=== PATIENT | female | born 1960 | race Caucasian/White ===

== ENCOUNTER 2016-04-30 11:48 | Emergency (ER) | payer OTHER ==
[2016-04-30 12:06] VITALS: BP 119/90; PULSE 86; TEMP 99.8; BMI 25.7
--- NOTE | 2016-04-30 12:40 | PDOC ---
[id number] R ANKLE INJURY Time Seen by Provider: 04/30/16 12:21 - History of Present Illness Initial Comments: Complaint: Pain right ankle History of present illness: Twisted right ankle yesterday. Persistent pain and swelling. Ambulatory but significant pain with weightbearing. No prior fracture Examination reveals ecchymosis, swelling, and tenderness over the anterolateral ankle ligaments. No point tenderness of the malleoli or fifth metatarsal. Neurovascular intact. Gait adequate, though there is pain with weightbearing X-ray: Soft tissue swelling, no fracture Plan: Rest, ice, [place], elevate, anti-inflammatory medication. If no improvement, see orthopedist for further evaluation and treatment 5-7 days. Patient adequately ambulatory upon discharge to follow-up as directed. Past History - Past Medical History Allergies/Adverse Reactions: Allergies Allergy/AdvReac Type Severity Reaction Status Date / Time No Known Allergies Allergy Unverified 01/05/16 06:56 Home Medications: Ambulatory Orders Cholecalciferol (Vitamin D3) [Vitamin D3] 2,000 unit PO DAILY tablet 01/10/16 Cyanocobalamin (Vitamin B-12) [Vitamin B12] 1,500 mcg PO AM tablet 01/10/16 Diclofenac Sodium [Voltaren -] 50 mg PO TID #20 tablet. 04/30/16 - Psycho/Social/Smoking Cessation Hx Anxiety: No Suicidal Ideation: No Smoking History: Current every day smoker Have you smoked in the past 12 months: Yes Number of Cigarettes Smoked Daily: 10 Information on smoking cessation initiated: Yes 'Breaking Loose' booklet given: 04/30/16 Hx Alcohol Use: No Drug/Substance Use Hx: No Substance Use Type: None *Physical Exam - Vital Signs Last Vital Signs Temp Pulse Resp BP Pulse Ox 99.8 F H 86 16 119/90 95 04/30/16 12:02 04/30/16 12:02 04/30/16 12:02 04/30/16 12:02 04/30/16 12:02 *DC/Admit/Observation/Transfer Diagnosis at time of Disposition: Ankle sprain Qualifiers: Encounter type: initial encounter Involved ligament of ankle: tibiofibular ligament Laterality: right Qualified Code(s): S93.431A - Sprain of tibiofibular ligament of right ankle, initial encounter - Discharge Dispostion Disposition: HOME Condition at time of disposition: Stable Admit: No - Prescriptions Prescriptions: Diclofenac Sodium [Voltaren -] 50 mg PO TID #20 tablet.dr - Referrals Referrals: Tony Gutierrez MD [Staff Physician] - 1 week - Patient Instructions Printed Discharge Instructions: DI for Ankle Sprain, How to Apply an [place] Wrap
[2016-04-30] MEDS ORDERED: IBUPROFEN 400 MG TABLET (FP) PO ONE ×2 (12:50→12:53)
== END 2016-04-30 14:05 | disposition home or self-care (01) ==
LOC: FER 11:48
DX: S93.431A Sprain of tibiofibular ligament of right ankle, initial encounter (principal); X58.XXXA Exposure to other specified factors, initial encounter; Y93.9 Activity, unspecified; Y92.9 Unspecified place or not applicable; F17.210 Nicotine dependence, cigarettes, uncomplicated
CPT/HCPCS: 73610-TC-RT; 73630-TC-RT; 99281-25

== ENCOUNTER 2018-08-07 06:45 | Emergency (ER) | payer OTHER ==
[2018-08-07 06:56] VITALS: BP 144/74; PULSE 83; TEMP 97.9; BMI 22.6
[2018-08-07] MEDS ORDERED: IBUPROFEN 600 MG TABLET (FP) PO ONE ×2 (07:09→07:10)
[2018-08-07] MEDS ORDERED: ACETAMINOPHEN 325 MG TABLET (FP) PO ONE (07:09)
--- NOTE | 2018-08-07 07:09 | PDOC ---
History of Present Illness - General Chief Complaint: Injury Stated Complaint: TRIPPED OVER RUG YESTERDAY, PAIN TO LEFT KNEE Time Seen by Provider: 08/07/18 07:09 History Source: Patient Exam Limitations: No Limitations - History of Present Illness Initial Comments: 08/07/18 07:21 HPI 57 YOF presenting with left knee pain and swelling, unable to walk, s/p trip and fall on rug at home while wearing new sneakers. No prodromal sx. No numbness tingling or weakness in affected extremity. No LOC or head injury. No meds taken [facility] HOME HEALTH> Allergies: None Past Medical History: [place] Social history: +tobacco use. No alcohol or drug use. Surgical history: umbilical hernia Review of Systems MUSCULOSKELETAL: +joint pain and swelling. No muscle pain/arthralgias. SKIN: +mild bruising and swelling. no discharge, no rash. No wounds. Hematologic: no easy bruising/bleeding. NEUROLOGIC: No weakness, numbness or tingling. Allergic/Immunologic: no allergies All other systems reviewed and negative, or as documented in HPI. physical exam General: +anxious, screaming in pain. Vascular: 2+ DP pulses symmetric and equal. MSK: Proximal and distal strength 5/5, iron caster strength 5/5 - equal and symmetric. Plantar flexion and dorsiflexion 5/5, wiggles toes. Sensation grossly intact to light touch to S1-L4 distribution.. soft compartment. 2+ DP pulses bilaterally. ROM limited at the left knee 2/2 pain and swelling. +left prox tibial tenderness with overlying swelling and mild ecchymosis. No crepitus. No distal ankle or prox hip tenderness. Neuro: alert, no focal neuro deficits. Skin: color normal color, warm and well perfused. Cap refill <2 sec Past History - Past Medical History Allergies/Adverse Reactions: Allergies Allergy/AdvReac Type Severity Reaction Status Date / Time No Known Allergies Allergy Verified 08/07/18 06:46 Home Medications: Ambulatory Orders Cholecalciferol (Vitamin D3) [Vitamin D3] 2,000 unit PO DAILY tablet 01/10/16 Cyanocobalamin (Vitamin B-12) [Vitamin B12] 1,500 mcg PO AM tablet 01/10/16 COPD: No Psychiatric Problems: Yes (ANXIETY) - Suicide/Smoking/Psychosocial Hx Smoking History: Current every day smoker Have you smoked in the past 12 months: Yes Number of Cigarettes Smoked Daily: 10 Information on smoking cessation initiated: Yes 'Breaking Loose' booklet given: 04/30/16 Hx Alcohol Use: No Drug/Substance Use Hx: No Substance Use Type: None *Physical Exam - Vital Signs Last Vital Signs Temp Pulse Resp BP Pulse Ox 97.9 F 83 20 144/74 99 08/07/18 06:52 08/07/18 06:52 08/07/18 06:52 08/07/18 06:52 08/07/18 06:52 Medical Decision Making - Medical Decision Making 08/07/18 07:21 hpi as documented VS reviewed, wnl. In pain. DDx. arthritis, prox tibia fx, fibular fx, patella fx, knee effusion, knee sprain. clinically considered but doubt septic arthritis or gout/infection, as no skin findings and chronicity of sx w/o systemic findings. no palp knee effusion on exam to warrant tap. more fracture vs sprain. given analgesia ibuprofen/tylenol, reassess. using the ice and elevating on pillow comfortable otherwise, able to turn on her side and rest in bed. more mobile with her knee and lower extrem. Xray left knee, normal joint space alignment, no widening, no acute fx or dislocation. patella intact. prox tibia and plateau without evidence of cortical irregularlities or deformity or fracture Discussed results with patient. knee immobilizer, Rest ice and elevation. Pain control with OTC meds including motrin/tylenol as needed every 6 hours; no narcotics needed. Ortho followup provided. Crutches to assist with ambulation, WBAT. Please return to ED for increased pain, weakness, numbness/tingling, fever, or redness. 08/07/18 07:51 08/07/18 07:52 *DC/Admit/Observation/Transfer Diagnosis at time of Disposition: Sprain of left knee/leg - Discharge Dispostion Disposition: HOME Condition at time of disposition: Stable Decision to Admit order: No - Referrals Referrals: Km Lopez MD [Primary Care Provider] - Liborio Urena MD [Staff Physician] - Richie Hinton MD [Staff Physician] - - Patient Instructions Printed Discharge Instructions: DI for Knee Sprain, How to Use an Elastic Bandage-Knee Sprain Additional Instructions: you most likely have musculoskeletal strain and knee sprain. avoid heavy lifting or strenuous activity, or heavy exercise or walking extensively. you can walk with crutches if needed the knee immobilizer or sunil bandage will help with the pain, do not use the immobilizer device for more than 3 days to minimize further trauma and locked knee, this will delay the healing May take ibuprofen or tylenol every 6 hours as needed for mild to moderate pain , available over the counter. continue with range of motion exercises. RICE rest ice elevate the affected extremity Rest, Ice (20 minutes at a time, 3 times a day), Compression (SUNIL wrap or splint ), Elevation (above the heart). Follow up with your primary care physician in 1 week if symptoms persist, or with orthopedics if needed. Follow up with primary doctor/retail product demo specialist services provided as well. orthopedics referrals given. This should heal over the next 3-5 days, up to one week. FALL PREVENTION AT HOME WHAT YOU NEED TO KNOW There are many different factors that can increase your risk of falls. Falls can happen any time, but the majority of them occur in the home. Fall prevention includes ways to make your home and other areas safer. It also includes ways you can move more carefully to prevent a fall. Health conditions that cause changes in your blood pressure, vision, or muscle strength and coordination may increase your risk for falls. Medicines, including anesthesia, may increase your risk for falls if they make you dizzy, weak, or sleepy. FALL PREVENTION TIPS Stand or sit up slowly. This may help you keep your balance and prevent falls. Do not walk and talk at the same time. Concentrate on the task of walking and continue the conversation after you've reached a safe place. Wear shoes that fit well and have soles that iron caster. Wear shoes both inside and outside. Use slippers with good iron caster. Avoid shoes with high heels. Use assistive devices as directed. Your healthcare provider may suggest that you use a cane or walker to help you keep you balance. Be sure you have adequate lighting throughout your house. Keep paths clear. Remove books, shoes and other objects from walkways and stairs. Keep cords for telephones and lamps out of the way so you dont need to walk over them. Remove small rugs or secure them with double-sided tape. This will prevent you from tripping. Use a nightlight when getting out of bed at night. Stay active to maintain overall strength and endurance. Know your limitations. If there is a task you can not complete with ease, do not risk a fall by trying to complete it. Call 911 or have someone else call if: You have fallen and are unconscious You have fallen and cannot move part of your body Contact your healthcare provider if: You have fallen and have pain or a headache You have questions or concerns about your condition or care. - Post Discharge Activity
[2018-08-07] MEDS ORDERED: ACETAMINOPHEN 325 MG TABLET (FP) ONE (07:10)
== END 2018-08-07 08:31 | disposition home or self-care (01) ==
LOC: FER 06:45
DX: S83.92XA Sprain of unspecified site of left knee, initial encounter (principal); W18.09XA Striking against other object with subsequent fall, initial encounter; Y93.89 Activity, other specified; Y92.009 Unspecified place in unspecified non-institutional (private) residence as the place of occurrence of the external cause; F17.210 Nicotine dependence, cigarettes, uncomplicated; F32.9 Major depressive disorder, single episode, unspecified
CPT/HCPCS: 73562-TC-LT-FY; 99281-25

== ENCOUNTER 2022-02-02 04:08 | Day surgery (SDC) | payer OTHER ==
[2022-02-01 11:06] VITALS: BMI 26.4
[2022-02-02] MEDS ORDERED: HEPARIN NA (PORCINE) 5,000 UNITS/ML 1ML VIAL ONE ×2 (07:30→10:31)
[2022-02-02] MEDS ORDERED: LIDOCAINE HCL 1%, 10 MG/ML (20ML VIAL) ONE (07:30)
[2022-02-02] MEDS ORDERED: LIDOCAINE HCL 1%, 10 MG/ML (20ML VIAL) NR ONE ×3 (08:24→10:25)
[2022-02-02] MEDS ORDERED: HEPARIN NA (PORCINE) 5,000 UNITS/ML 1ML VIAL SQ ONE ×2 (08:25→10:27)
[2022-02-02] MEDS ORDERED: MIDAZOLAM HCL 2 MG/2 ML SINGLE DOSE VIAL ONE (10:10)
[2022-02-02] MEDS ORDERED: ceFAZolin SODIUM 1 GM VIAL IVPB ONE (10:15)
[2022-02-02] MEDS ORDERED: ceFAZolin SODIUM 1 GM VIAL ONE (10:15)
[2022-02-02] MEDS ORDERED: PROPOFOL 20 ML ONE (10:43)
[2022-02-02] MEDS ORDERED: CLOPIDOGREL BISULFATE 75 MG TABLET (FP) PO ONE ×2 (11:18→11:29)
[2022-02-02] MEDS ORDERED: CLOPIDOGREL BISULFATE 75 MG TABLET (FP) ONE (11:26)
[2022-02-02] MEDS ORDERED: ONDANSETRON 4 MG/2 ML VIAL IVPUSH PRN (12:11)
[2022-02-02] MEDS ORDERED: oxyCODONE HCL 5 MG TABLET PO PRN (12:11)
[2022-02-02 13:53] VITALS: BP 145/73; PULSE 67; RESP 16; TEMP 98.2
== END 2022-02-02 13:20 | disposition home or self-care (01) ==
LOC: JASU-SURG 04:08
PROVIDERS: ATTEND Surgery Vascular Surgery
PROC: 047J3DZ Dilation of Left External Iliac Artery with Intraluminal Device, Percutaneous Approach (ICD-10-PCS; principal; 2022-02-02 10:30)
DX: I70.212 Atherosclerosis of native arteries of extremities with intermittent claudication, left leg (principal)
CPT/HCPCS: 37221; C1877; 76000-TC-FY; 94760; J1644

== ENCOUNTER 2022-02-09 04:19 | Inpatient (IN) | payer OTHER ==
[2022-02-08 15:02] VITALS: BMI 25.7
[2022-02-09] MEDS ORDERED: LIDOCAINE HCL 1%, 10 MG/ML (20ML VIAL) ONE (07:34)
[2022-02-09] MEDS ORDERED: HEPARIN NA (PORCINE) 5,000 UNITS/ML 1ML VIAL ONE ×2 (07:34→13:52)
[2022-02-09] MEDS ORDERED: ceFAZolin SODIUM 1 GM VIAL ONE (12:25)
[2022-02-09] MEDS ORDERED: MIDAZOLAM HCL 2 MG/2 ML SINGLE DOSE VIAL ONE ×2 (12:26→12:40)
[2022-02-09] MEDS ORDERED: ceFAZolin SODIUM 1 GM VIAL IVPB ONE ×2 (12:31)
[2022-02-09] MEDS ORDERED: LIDOCAINE HCL 1%, 10 MG/ML (20ML VIAL) INF ONE ×2 (12:34)
[2022-02-09] MEDS ORDERED: PROPOFOL 40 ML ONE (12:43)
[2022-02-09] MEDS ORDERED: HEPARIN NA (PORCINE) 5,000 UNITS/ML 1ML VIAL SQ ONE (13:04)
[2022-02-09] MEDS ORDERED: PROPOFOL 20 ML ONE ×2 (13:42→14:05)
[2022-02-09] MEDS ORDERED: HEPARIN INFUSION - 25,000 UNITS/500 ML INFUS.BAG IVPB ONE (13:54)
[2022-02-09] MEDS ORDERED: ALTEPLASE (CATHFLO) 15 MG in SODIUM CHLORIDE 135 ML CVP ONE ×2 (14:00→16:00)
[2022-02-09] MEDS ORDERED: ALTEPLASE (CATHFLO) 15 MG in SODIUM CHLORIDE 135 ML NR ONE ×3 (14:10→16:00)
[2022-02-09] MEDS ORDERED: ONDANSETRON 4 MG/2 ML VIAL IVPUSH PRN ×2 (14:37→15:17)
[2022-02-09] MEDS ORDERED: PROMETHAZINE HCL 25 MG/1 ML VIAL IVPUSH PRN ×2 (14:37→15:17)
[2022-02-09] MEDS ORDERED: oxyCODONE HCL 5 MG TABLET PO PRN (14:37)
[2022-02-09] MEDS ORDERED: HEPARIN INFUSION - 25,000 UNITS/500 ML INFUS.BAG IVPB SCH ×2 (15:45→15:56)
[2022-02-09] MEDS ORDERED: SODIUM CHLORIDE 1,000 ML IV SCH (15:45)
[2022-02-09] MEDS ORDERED: HYDROmorphone HCl 2 MG/ML VIAL ONE (16:30)
[2022-02-09] MEDS: oxyCODONE HCL 5 MG TABLET PO PRN ×2 (18:34→23:39)
[2022-02-09] MEDS ORDERED: HYDROmorphone HCl 2 MG/ML VIAL IVPUSH ONE (19:05)
[2022-02-09] MEDS: MUPIROCIN 2% TOPICAL OINTMENT FOR DECOLONIZATION NS SCH (21:20)
[2022-02-09] MEDS: CHLORHEXIDINE GLUCONATE 4% CLEANSER FOR DECOLONIZATION TP SCH (21:20)
[2022-02-09] MEDS: NICOTINE 14 MG/24 HOURS TOPICAL PATCH TD SCH (21:20)
[2022-02-09 21:53] LABS: HEMATOCRIT 35.4 % (32.4-45.2); HEMOGLOBIN 11.9 GM/dL (10.7-15.3); MCH 33.7 pg (25.7-33.7); MCHC 33.5 g/dl (32.0-36.0); MEAN CELL VOLUME 100.6 fl (80-96); MEAN PLT VOLUME 8.7 fl (7.5-11.1); PLATELET COUNT 209 10^3/uL (134-434); RBC 3.52 M/mm3 (3.60-5.2); RDW 12.6 % (11.6-15.6)
[2022-02-09 22:03] LABS: INR 0.91 (0.83-1.09); PROTHROMBIN TIME (PATIENT) 10.5 SEC (9.7-13.0)
[2022-02-10 04:03] LABS: BLOOD UREA NITROGEN 14.8 mg/dL (7-18); CALCIUM 7.7 mg/dL (8.5-10.1); INR 0.91 (0.83-1.09); PROTHROMBIN TIME (PATIENT) 10.5 SEC (9.7-13.0)
[2022-02-10 04:05] LABS: ACTIVATED PTT 30.6 SECONDS (25.2-36.5)
[2022-02-10 04:08] LABS: CREATININE 0.6 mg/dL (0.55-1.3)
[2022-02-10 05:01] LABS: HEMATOCRIT 34.2 % (32.4-45.2); HEMOGLOBIN 11.5 GM/dL (10.7-15.3); MCH 34.1 pg (25.7-33.7); MCHC 33.7 g/dl (32.0-36.0); MEAN CELL VOLUME 101.2 fl (80-96); MEAN PLT VOLUME 8.6 fl (7.5-11.1); PLATELET COUNT 189 10^3/uL (134-434); RBC 3.38 M/mm3 (3.60-5.2); RDW 12.2 % (11.6-15.6); WHITE BLOOD COUNT 8.2 K/mm3 (4.0-10.0)
[2022-02-10] MEDS: oxyCODONE HCL 5 MG TABLET PO PRN ×4 (05:27→21:50)
[2022-02-10] MEDS ORDERED: LIDOCAINE HCL 1%, 10 MG/ML (20ML VIAL) ONE (07:07)
[2022-02-10] MEDS ORDERED: HEPARIN NA (PORCINE) 5,000 UNITS/ML 1ML VIAL ONE (07:07)
[2022-02-10] MEDS ORDERED: HEPARIN NA (PORCINE) 5,000 UNITS/ML 1ML VIAL SQ ONE ×2 (07:13→07:49)
[2022-02-10] MEDS ORDERED: LIDOCAINE HCL 1%, 10 MG/ML (20ML VIAL) NR ONE (07:13)
[2022-02-10] MEDS ORDERED: DEXMEDETOMIDINE HCL 200 MCG/2 ML IVPB ONE (07:18)
[2022-02-10] MEDS ORDERED: SUCCINYLCHOLINE CHLORIDE 200 MG/10 ML SYRINGE ONE (07:26)
[2022-02-10] MEDS ORDERED: PROPOFOL 20 ML ONE (07:26)
[2022-02-10] MEDS ORDERED: LACTATED RINGERS SOLUTION 1,000 ML IV SCH (07:30)
[2022-02-10] MEDS ORDERED: MIDAZOLAM HCL 2 MG/2 ML SINGLE DOSE VIAL ONE (07:40)
[2022-02-10] MEDS ORDERED: MECLIZINE HCL 12.5 MG TABLET PO PRN (08:40)
[2022-02-10] MEDS: SERTRALINE HCL 50 MG TABLET (FP) PO SCH (09:31)
[2022-02-10] MEDS: NICOTINE 14 MG/24 HOURS TOPICAL PATCH TD SCH (09:31)
[2022-02-10] MEDS: MUPIROCIN 2% TOPICAL OINTMENT FOR DECOLONIZATION NS SCH ×2 (09:31→22:01)
[2022-02-10] MEDS: PANTOPRAZOLE 40 MG TABLET PO SCH (09:32)
[2022-02-10] MEDS: ENOXAPARIN NA (PORCINE) 80 MG/0.8 ML DISP.SYRIN SQ SCH ×2 (11:58→22:01)
[2022-02-10 12:23] LABS: HEMATOCRIT 29.8 % (32.4-45.2); HEMOGLOBIN 10.1 GM/dL (10.7-15.3); MCH 34.2 pg (25.7-33.7); MEAN CELL VOLUME 100.6 fl (80-96); MEAN PLT VOLUME 8.3 fl (7.5-11.1); PLATELET COUNT 176 10^3/uL (134-434); RBC 2.96 M/mm3 (3.60-5.2); RDW 12.5 % (11.6-15.6); WHITE BLOOD COUNT 7.1 K/mm3 (4.0-10.0)
[2022-02-10 14:29] LABS: BLOOD UREA NITROGEN 12.9 mg/dL (7-18)
[2022-02-10 14:32] LABS: CREATININE 0.6 mg/dL (0.55-1.3)
[2022-02-10 21:46] LABS: BLOOD UREA NITROGEN 16.8 mg/dL (7-18); CALCIUM 8.2 mg/dL (8.5-10.1)
[2022-02-10 21:49] LABS: CREATININE 0.9 mg/dL (0.55-1.3)
[2022-02-10] MEDS: CHLORHEXIDINE GLUCONATE 4% CLEANSER FOR DECOLONIZATION TP SCH (22:01)
[2022-02-10] MEDS: ROSUVASTATIN CA 5 MG TABLET PO SCH (22:01)
[2022-02-11] MEDS: oxyCODONE HCL 5 MG TABLET PO PRN ×4 (04:16→20:19)
[2022-02-11 07:26] LABS: BASO % 0.4 % (0-2.0); EOS % 2.6 % (0-4.5); HEMATOCRIT 29.8 % (32.4-45.2); MCH 33.8 pg (25.7-33.7); MCHC 33.5 g/dl (32.0-36.0); MEAN PLT VOLUME 8.5 fl (7.5-11.1); MONO % 6.9 % (3.8-10.2); NEUT % 68.1 % (42.8-82.8); PLATELET COUNT 174 10^3/uL (134-434); RBC 2.95 M/mm3 (3.60-5.2); RDW 12.3 % (11.6-15.6); WHITE BLOOD COUNT 6.2 K/mm3 (4.0-10.0)
[2022-02-11 07:46] LABS: BLOOD UREA NITROGEN 13.8 mg/dL (7-18); MAGNESIUM 1.9 mg/dL (1.8-2.4)
[2022-02-11 07:49] LABS: CREATININE 0.7 mg/dL (0.55-1.3); PHOSPHOROUS 3.5 mg/dL (2.5-4.9)
[2022-02-11] MEDS: NICOTINE 14 MG/24 HOURS TOPICAL PATCH TD SCH (09:28)
[2022-02-11] MEDS: ENOXAPARIN NA (PORCINE) 80 MG/0.8 ML DISP.SYRIN SQ SCH ×2 (09:28→21:01)
[2022-02-11] MEDS: PANTOPRAZOLE 40 MG TABLET PO SCH (09:30)
[2022-02-11] MEDS: SERTRALINE HCL 50 MG TABLET (FP) PO SCH (09:30)
[2022-02-11] MEDS: MUPIROCIN 2% TOPICAL OINTMENT FOR DECOLONIZATION NS SCH ×2 (11:34→21:01)
[2022-02-11] MEDS: CHLORHEXIDINE GLUCONATE 4% CLEANSER FOR DECOLONIZATION TP SCH (21:01)
[2022-02-11] MEDS: ROSUVASTATIN CA 5 MG TABLET PO SCH (21:01)
[2022-02-12] MEDS: oxyCODONE HCL 5 MG TABLET PO PRN ×4 (00:55→22:15)
[2022-02-12 07:54] LABS: HEMATOCRIT 33.8 % (32.4-45.2); HEMOGLOBIN 11.2 GM/dL (10.7-15.3); MCH 33.7 pg (25.7-33.7); MCHC 33.2 g/dl (32.0-36.0); MEAN CELL VOLUME 101.3 fl (80-96); MEAN PLT VOLUME 8.4 fl (7.5-11.1); PLATELET COUNT 217 10^3/uL (134-434); RBC 3.34 M/mm3 (3.60-5.2); RDW 12.4 % (11.6-15.6); WHITE BLOOD COUNT 7.1 K/mm3 (4.0-10.0)
[2022-02-12] MEDS: NICOTINE 14 MG/24 HOURS TOPICAL PATCH TD SCH (09:00)
[2022-02-12] MEDS: PANTOPRAZOLE 40 MG TABLET PO SCH (09:01)
[2022-02-12] MEDS: ENOXAPARIN NA (PORCINE) 80 MG/0.8 ML DISP.SYRIN SQ SCH ×2 (09:01→22:13)
[2022-02-12] MEDS: SERTRALINE HCL 50 MG TABLET (FP) PO SCH (09:02)
[2022-02-12] MEDS: MUPIROCIN 2% TOPICAL OINTMENT FOR DECOLONIZATION NS SCH (10:12)
[2022-02-12] MEDS ORDERED: MECLIZINE HCL 12.5 MG TABLET PO PRN (21:43)
[2022-02-12] MEDS ORDERED: PATIENT'S OWN MEDICATION (NON-FORMULARY) (Naproxen Sodium [Aleve] 220 MG Tablet) PO PRN (21:43)
[2022-02-12] MEDS ORDERED: MUPIROCIN 2% TOPICAL OINTMENT FOR DECOLONIZATION NS SCH (22:00)
[2022-02-12] MEDS ORDERED: CHLORHEXIDINE GLUCONATE 4% CLEANSER FOR DECOLONIZATION TP SCH (22:00)
[2022-02-12] MEDS: ROSUVASTATIN CA 5 MG TABLET PO SCH (22:13)
[2022-02-13] MEDS: oxyCODONE HCL 5 MG TABLET PO PRN ×5 (04:01→23:06)
[2022-02-13] MEDS: CYANOCOBALAMIN 1,000 MCG TABLET (FP) PO SCH (06:22)
[2022-02-13 09:09] LABS: HEMATOCRIT 32.4 % (32.4-45.2); HEMOGLOBIN 10.9 GM/dL (10.7-15.3); MCH 33.8 pg (25.7-33.7); MCHC 33.5 g/dl (32.0-36.0); MEAN CELL VOLUME 100.7 fl (80-96); MEAN PLT VOLUME 8.3 fl (7.5-11.1); PLATELET COUNT 243 10^3/uL (134-434); RBC 3.22 M/mm3 (3.60-5.2); RDW 12.2 % (11.6-15.6)
[2022-02-13] MEDS: NICOTINE 14 MG/24 HOURS TOPICAL PATCH TD SCH (10:43)
[2022-02-13] MEDS: ENOXAPARIN NA (PORCINE) 80 MG/0.8 ML DISP.SYRIN SQ SCH ×2 (10:43→21:28)
[2022-02-13] MEDS: CLOPIDOGREL BISULFATE 75 MG TABLET (FP) PO SCH (10:44)
[2022-02-13] MEDS: PANTOPRAZOLE 40 MG TABLET PO SCH (10:44)
[2022-02-13] MEDS: SERTRALINE HCL 50 MG TABLET (FP) PO SCH (10:44)
[2022-02-13] MEDS: CHOLECALCIFEROL (VIT D3) 1,000 UNIT (25 MCG) TABLET PO SCH (10:44)
[2022-02-13] MEDS: LORazepam 0.5 MG TABLET PO PRN (17:14)
[2022-02-13] MEDS ORDERED: diphenhydrAMINE HCL 25 MG CAPSULE (FP) PO ONE (19:30)
[2022-02-13] MEDS: ROSUVASTATIN CA 5 MG TABLET PO SCH (21:30)
[2022-02-14] MEDS: LORazepam 0.5 MG TABLET PO PRN ×2 (00:04→10:36)
[2022-02-14] MEDS: oxyCODONE HCL 5 MG TABLET PO PRN ×3 (05:54→14:06)
[2022-02-14] MEDS: CYANOCOBALAMIN 1,000 MCG TABLET (FP) PO SCH (06:21)
[2022-02-14] MEDS: NICOTINE 14 MG/24 HOURS TOPICAL PATCH TD SCH (10:10)
[2022-02-14] MEDS: ENOXAPARIN NA (PORCINE) 80 MG/0.8 ML DISP.SYRIN SQ SCH (10:10)
[2022-02-14] MEDS: SERTRALINE HCL 50 MG TABLET (FP) PO SCH (10:11)
[2022-02-14] MEDS: CHOLECALCIFEROL (VIT D3) 1,000 UNIT (25 MCG) TABLET PO SCH (10:11)
[2022-02-14] MEDS: PANTOPRAZOLE 40 MG TABLET PO SCH (10:11)
[2022-02-14] MEDS: CLOPIDOGREL BISULFATE 75 MG TABLET (FP) PO SCH (10:13)
[2022-02-14] MEDS ORDERED: VITAMIN E 400 INTERNATIONAL-UNITS CAPSULE (FP) PO SCH (11:00)
[2022-02-14 14:50] VITALS: BP 110/68; PULSE 69; RESP 18; TEMP 97.3
[2022-02-14] MEDS: PATIENT'S OWN MEDICATION (NON-FORMULARY) (Biotin [Biotin] 1 MG Capsule) PO SCH (17:53)
== END 2022-02-14 16:50 | disposition home or self-care (01) | DRG 181 ==
LOC: JASU-SURG 04:19 → J2C 16:03 → JICU 18:30 → J7W 02-12 21:29
PROVIDERS: ADMIT Surgery Vascular Surgery; ATTEND Internal Medicine
PROC: 04CQ3ZZ Extirpation of Matter from Left Anterior Tibial Artery, Percutaneous Approach (ICD-10-PCS; 2022-02-09)
PROC: 047Q3ZZ Dilation of Left Anterior Tibial Artery, Percutaneous Approach (ICD-10-PCS; 2022-02-09)
PROC: B41DZZZ Fluoroscopy of Aorta and Bilateral Lower Extremity Arteries (ICD-10-PCS; 2022-02-09)
PROC: 04CN3ZZ Extirpation of Matter from Left Popliteal Artery, Percutaneous Approach (ICD-10-PCS; 2022-02-09)
PROC: 3E05317 Introduction of Other Thrombolytic into Peripheral Artery, Percutaneous Approach (ICD-10-PCS; 2022-02-09)
PROC: 047N3ZZ Dilation of Left Popliteal Artery, Percutaneous Approach (ICD-10-PCS; 2022-02-09)
PROC: B41DZZZ Fluoroscopy of Aorta and Bilateral Lower Extremity Arteries (ICD-10-PCS; 2022-02-10)
PROC: 047N3ZZ Dilation of Left Popliteal Artery, Percutaneous Approach (ICD-10-PCS; principal; 2022-02-10 07:30)
DX: I73.9 Peripheral vascular disease, unspecified (principal); I74.3 Embolism and thrombosis of arteries of the lower extremities; E78.5 Hyperlipidemia, unspecified; F17.210 Nicotine dependence, cigarettes, uncomplicated; J44.9 Chronic obstructive pulmonary disease, unspecified
CPT/HCPCS: 36415; 76000-TC-FY; 80048; 83735; 84100; 85025; 85027; 85384; 85610; 85730; 86850; 86900; 86901; 94760; 97116-GP; 97161-GP; 99406; G0463-25; J1644; J2997

== ENCOUNTER 2022-09-28 04:06 | Day surgery (SDC) | payer OTHER ==
[2022-09-26 13:38] VITALS: BMI 24.8
[2022-09-28] MEDS ORDERED: MIDAZOLAM HCL 2 MG/2 ML SINGLE DOSE VIAL ONE (07:24)
[2022-09-28] MEDS ORDERED: PROPOFOL 40 ML ONE (07:24)
[2022-09-28] MEDS ORDERED: LIDOCAINE HCL/PF 2% SDV 5ML VIAL ONE (07:24)
[2022-09-28] MEDS ORDERED: DEXMEDETOMIDINE HCL 200 MCG/2 ML IVPB ONE (07:43)
[2022-09-28] MEDS ORDERED: HEPARIN NA (PORCINE) 5,000 UNITS/ML 1ML VIAL ONE ×2 (08:41→09:25)
[2022-09-28] MEDS ORDERED: LIDOCAINE HCL 1%, 10 MG/ML (10ML VIAL) MDV ONE (08:41)
[2022-09-28] MEDS ORDERED: ceFAZolin SODIUM 1 GM VIAL ONE (09:11)
[2022-09-28] MEDS ORDERED: ceFAZolin SODIUM 1 GM VIAL IVPB ONE (09:12)
[2022-09-28] MEDS ORDERED: LIDOCAINE HCL 1%, 10 MG/ML (20ML VIAL) INF ONE ×2 (09:16)
[2022-09-28] MEDS ORDERED: ONDANSETRON 4 MG/2 ML VIAL IVPUSH PRN (09:48)
[2022-09-28] MEDS ORDERED: LACTATED RINGERS SOLUTION 1,000 ML IV SCH (10:00)
[2022-09-28 11:11] VITALS: RESP 16; TEMP 98.7
[2022-09-28 11:40] VITALS: BP 110/58; PULSE 55
== END 2022-09-28 11:35 | disposition home or self-care (01) ==
LOC: JASU-SURG 04:06
PROVIDERS: ATTEND Surgery Vascular Surgery
PROC: 047D3DZ Dilation of Left Common Iliac Artery with Intraluminal Device, Percutaneous Approach (ICD-10-PCS; principal; 2022-09-28 09:00)
DX: I70.212 Atherosclerosis of native arteries of extremities with intermittent claudication, left leg (principal)
CPT/HCPCS: 37221; C1877; 76000-TC-FY; 94760; C1760; C1769; J1644

== ENCOUNTER 2022-11-06 20:18 | Emergency (ER) | payer OTHER ==
[2022-11-06 20:36] VITALS: RESP 16; TEMP 98.1; BMI 25.7
[2022-11-06] MEDS ORDERED: ONDANSETRON *ODT* 4 MG TABLET SL ONE (20:43)
[2022-11-06] MEDS ORDERED: ONDANSETRON *ODT* 4 MG TABLET ONE (20:43)
[2022-11-06 21:13] VITALS: BP 159/89; PULSE 64
== END 2022-11-06 22:11 | disposition home or self-care (01) ==
LOC: FER 20:18
DX: S06.0X0A Concussion without loss of consciousness, initial encounter (principal); S00.03XA Contusion of scalp, initial encounter; R42 Dizziness and giddiness; R11.0 Nausea; W22.8XXA Striking against or struck by other objects, initial encounter; Y93.9 Activity, unspecified; Y92.9 Unspecified place or not applicable
CPT/HCPCS: 70450-TC; 99284-25; Q0162

== ENCOUNTER 2023-01-04 05:04 | Day surgery (SDC) | payer OTHER ==
[2023-01-02 12:10] VITALS: BMI 26.6
[2023-01-04] MEDS ORDERED: LIDOCAINE HCL 1%, 10 MG/ML (20ML VIAL) ONE (13:09)
[2023-01-04] MEDS ORDERED: HEPARIN NA (PORCINE) 5,000 UNITS/ML 1ML VIAL ONE (13:09)
[2023-01-04] MEDS ORDERED: MIDAZOLAM HCL 2 MG/2 ML SINGLE DOSE VIAL ONE ×2 (13:20→13:42)
[2023-01-04] MEDS ORDERED: PROPOFOL 20 ML ONE (13:46)
[2023-01-04] MEDS ORDERED: IOHEXOL 300 MG/ML INFUS..BTL IV ONE ×2 (13:52)
[2023-01-04] MEDS ORDERED: LIDOCAINE HCL 1%, 10 MG/ML (20ML VIAL) INF ONE ×2 (13:52)
[2023-01-04] MEDS ORDERED: HEPARIN NA (PORCINE) 5,000 UNITS/ML 1ML VIAL SQ ONE (13:52)
[2023-01-04] MEDS ORDERED: ceFAZolin SODIUM 1 GM VIAL IVPB ONE (13:53)
[2023-01-04] MEDS ORDERED: ceFAZolin SODIUM 1 GM VIAL ONE (14:16)
[2023-01-04] MEDS ORDERED: LIDOCAINE HCL/PF 2% SDV 5ML VIAL ONE (14:16)
[2023-01-04] MEDS ORDERED: GLYCOPYRROLATE 0.2 MG/1 ML VIAL ONE (14:16)
[2023-01-04] MEDS ORDERED: ONDANSETRON 4 MG/2 ML VIAL ONE (14:16)
[2023-01-04] MEDS ORDERED: LABETALOL HCL 20 MG/4 ML VIAL ONE (14:57)
[2023-01-04] MEDS ORDERED: ONDANSETRON 4 MG/2 ML VIAL IVPUSH PRN (15:04)
[2023-01-04] MEDS ORDERED: oxyCODONE HCL 5 MG TABLET PO PRN (15:04)
[2023-01-04] MEDS ORDERED: LACTATED RINGERS SOLUTION 1,000 ML IV SCH (15:15)
[2023-01-04] MEDS ORDERED: oxyCODONE HCL 5 MG TABLET ONE (15:55)
[2023-01-04] MEDS ORDERED: oxyCODONE HCL 5 MG TABLET PO ONE (15:57)
[2023-01-04 18:04] VITALS: RESP 20
[2023-01-04 18:08] VITALS: BP 145/86; PULSE 69; TEMP 97.6
== END 2023-01-04 17:30 | disposition home or self-care (01) ==
LOC: JASU-SURG 05:04
PROVIDERS: ATTEND Surgery Vascular Surgery
PROC: 047F3ZZ Dilation of Left Internal Iliac Artery, Percutaneous Approach (ICD-10-PCS; principal; 2023-01-04 14:00)
DX: I70.212 Atherosclerosis of native arteries of extremities with intermittent claudication, left leg (principal)
CPT/HCPCS: 76000-TC-FY; 94760; C1760; C1769; J1644

== ENCOUNTER 2023-03-25 12:05 | Emergency (ER) | payer OTHER ==
[2023-03-25] MEDS ORDERED: ACETAMINOPHEN 500 MG TABLET (FP) PO ONE (12:21)
[2023-03-25] MEDS ORDERED: KETOROLAC TROMETHAMINE 30 MG/1 ML VIAL IM ONE (12:21)
[2023-03-25] MEDS ORDERED: ACETAMINOPHEN 500 MG TABLET (FP) ONE (12:26)
[2023-03-25] MEDS ORDERED: KETOROLAC TROMETHAMINE 30 MG/1 ML VIAL ONE (12:26)
[2023-03-25 12:28] VITALS: BP 137/77; PULSE 83; RESP 20; TEMP 98; BMI 25.7
[2023-03-25] MEDS ORDERED: oxyCODONE HCL 5 MG TABLET PO ONE (12:50)
[2023-03-25] MEDS ORDERED: oxyCODONE HCL 5 MG TABLET ONE (12:58)
== END 2023-03-25 14:20 | disposition home or self-care (01) ==
LOC: FER 12:05
PROC: 3E0233Z Introduction of Anti-inflammatory into Muscle, Percutaneous Approach (ICD-10-PCS; principal; 2023-03-25)
DX: M25.561 Pain in right knee (principal); R22.41 Localized swelling, mass and lump, right lower limb; W01.0XXA Fall on same level from slipping, tripping and stumbling without subsequent striking against object, initial encounter
CPT/HCPCS: 73562-TC-RT-FY; 99284-25

== ENCOUNTER 2023-10-15 14:04 | Emergency (ER) | payer OTHER ==
[2023-10-15 14:17] VITALS: BP 139/69; PULSE 98; RESP 18; TEMP 98; BMI 25.7
[2023-10-15 15:52] LABS: BASO % 0.6 % (0-2.0); EOS % 2.6 % (0-4.5); HEMATOCRIT 36.7 % (32.4-45.2); HEMOGLOBIN 12.7 GM/dL (10.7-15.3); LYMPH % 17.9 % (8-40); MCH 34.3 pg (25.7-33.7); MCHC 34.5 g/dl (32.0-36.0); MEAN CELL VOLUME 99.3 fl (80-96); MEAN PLT VOLUME 7.8 fl (7.5-11.1); MONO % 6.7 % (3.8-10.2); NEUT % 72.2 % (42.8-82.8); PLATELET COUNT 202 10^3/uL (134-434); RBC 3.69 M/mm3 (3.60-5.2); RDW 12.3 % (11.6-15.6); WHITE BLOOD COUNT 7.1 K/mm3 (4.0-10.0)
[2023-10-15] MEDS ORDERED: ACETAMINOPHEN INJECTION 100 ML IVPB ONE (15:53)
[2023-10-15] MEDS ORDERED: CEFTRIAXONE 1 GM/50 ML BAG ONE (15:53)
[2023-10-15] MEDS: ACETAMINOPHEN 1000 MG/100 ML BAG IVPB ONE (16:03)
[2023-10-15] MEDS: CEFTRIAXONE 1,000 MG in DEXTROSE 5%-WATER - 50 ML IVPB ONE (16:04)
[2023-10-15 16:16] LABS: POTASSIUM 3.6 mmol/L (3.5-5.1)
[2023-10-15 16:18] LABS: ALBUMIN 3.5 g/dl (3.4-5.0); BLOOD UREA NITROGEN 14.4 mg/dL (7-18); CALCIUM 9.1 mg/dL (8.5-10.1)
[2023-10-15 16:22] LABS: CREATININE 0.7 mg/dL (0.55-1.3)
[2023-10-15 16:23] LABS: BILIRUBIN,TOTAL 0.5 mg/dL (0.2-1); TOT PROT 6.6 g/dl (6.4-8.2)
== END 2023-10-15 17:10 | disposition home or self-care (01) ==
LOC: JER 14:04
PROC: 3E03329 Introduction of Other Anti-infective into Peripheral Vein, Percutaneous Approach (ICD-10-PCS; principal; 2023-10-15)
PROC: 3E033NZ Introduction of Analgesics, Hypnotics, Sedatives into Peripheral Vein, Percutaneous Approach (ICD-10-PCS; 2023-10-15)
DX: S92.344A Nondisplaced fracture of fourth metatarsal bone, right foot, initial encounter for closed fracture (principal); L03.114 Cellulitis of left upper limb; W01.0XXA Fall on same level from slipping, tripping and stumbling without subsequent striking against object, initial encounter; Y92.009 Unspecified place in unspecified non-institutional (private) residence as the place of occurrence of the external cause
CPT/HCPCS: 36415; 73070-TC-LT-FY; 73590-TC-RT-FY; 73630-TC-RT-FY; 80053; 85025; 93922; 93925-TC; 93978; 96365; 96375; 99284-25; G0463-25; J0131